=== PATIENT | male | born 1985 | race Caucasian/White ===

== ENCOUNTER 2023-01-17 09:35 | Emergency (ER) | payer OTHER, MEDICAID ==
[~2023-01-17] VITALS: Ht 177.8 cm; Wt 82.0 kg
[2023-01-17 09:41] VITALS: TEMP 98.6; O2SAT 100
[2023-01-17 10:10] VITALS: BP 150/96; PULSE 90; RESP 16
[2023-01-17] MEDS ORDERED: KETOROLAC 60MG/2ML VIAL IM STA (10:10)
[2023-01-17 10:48] LABS: BASOPHILS % 0.4 % (0.0-2.0); EOSINOPHILS % 0.8 % (0.0-5.0); HEMATOCRIT. 38.7 % (42.0-52.0); HEMOGLOBIN. 13.3 g/dL (14.0-18.0); LYMPHOCYTES % 20.7 % (20.0-50.0); MEAN CORPUSCULAR HEMOGLOBIN 29.7 pg (28.0-32.0); MEAN CORPUSCULAR VOLUME 86.5 fL (80.0-94.0); MEAN PLATELET VOLUME 7.8 fl (7.4-10.4); NEUTROPHILS % 72.1 % (40.0-76.0); PLATELET 266 x1000/uL (130-400); RED BLOOD CELL COUNT 4.47 mill/uL (4.7-6.1); RED CELL DISTRIBUTION WIDTH 13.8 % (11.6-14.6)
[2023-01-17 10:57] LABS: CLARITY URINE CLEAR (CLEAR); COLOR URINE YELLOW (YELLOW); KETONES URINE NEGATIVE (NEGATIVE); LEUKOCYTE ESTERASE URINE NEGATIVE (NEGATIVE); NITRITE URINE NEGATIVE (NEGATIVE); OCCULT BLOOD URINE NEGATIVE (NEGATIVE); PROTEIN URINE NEGATIVE (NEGATIVE); SPECIFIC GRAVITY URINE 1.012 (1.005-1.030); UROBILINOGEN URINE 0.2 E.U./dL (0.2-1.0)
[2023-01-17 11:02] LABS: CHLORIDE 104 mEq/L (98-107)
== END 2023-01-17 12:08 | disposition home or self-care (01) ==
LOC: ER 09:35
DX: R10.9 Unspecified abdominal pain (principal); Z88.5 Allergy status to narcotic agent; Z98.890 Other specified postprocedural states
CPT/HCPCS: 99285; 74176; 71045; 80053; 81003; 83690; 85025; 36415; 96372; J1885

== ENCOUNTER 2024-10-13 06:34 | Emergency (ER) | payer MEDICAID, OTHER ==
[~2024-10-13] VITALS: Ht 177.8 cm; Wt 80.0 kg
[2024-10-13 06:43] VITALS: O2SAT 99
[2024-10-13 07:15] VITALS: BP 202/124; PULSE 100; RESP 18; TEMP 36.9; O2SAT 99
[2024-10-13] MEDS: TETANUS, DIPHTHERIA, PERTUSSIS VAC/PF 0.5ML (>10YR OLD) IM ONE (07:30)
[2024-10-13] MEDS ORDERED: BACITRACIN ZINC OINT UDPKT TOP ONE (07:30)
[2024-10-13] MEDS ORDERED: LIDOCAINE HCL/PF 1% 10 MG/ML 5ML VIAL INFIL ONE (07:30)
[2024-10-13] MEDS: IBUPROFEN 600MG TABLET PO ONE (07:30)
[2024-10-13] MEDS ORDERED: CEPH500T MT (08:54)
[2024-10-13] MEDS ORDERED: IBUP-2029 MT (08:54)
[2024-10-13] MEDS ORDERED: DOXY100C5 MT (08:54)
== END 2024-10-13 09:05 | disposition home or self-care (01) ==
LOC: ER 06:45
DX: L02.512 Cutaneous abscess of left hand (principal); C85.9A Non-Hodgkin lymphoma, unspecified, in remission; Z88.5 Allergy status to narcotic agent
CPT/HCPCS: 87070; 87186; 87205; 87077; 73140; 90715; 10060; 90471; 99284; J2003; Z7610 ×2; 99283